=== PATIENT | female | born 1995 | race African-American/Black ===

== ENCOUNTER 2019-07-10 23:06 | Emergency (ER) | payer MEDICAID ==
[~2019-07-10] VITALS: Ht 170.2 cm; Wt 74.1 kg
[2019-07-10 23:35] VITALS: BP 104/64
== END 2019-07-11 02:09 | disposition home or self-care (01) ==
LOC: ER 23:06
DX: G44.209 Tension-type headache, unspecified, not intractable (principal); Z88.0 Allergy status to penicillin; Z88.6 Allergy status to analgesic agent
CPT/HCPCS: 99281

== ENCOUNTER 2019-10-09 15:12 | Emergency (ER) | payer MEDICAID ==
[~2019-10-09] VITALS: Ht 167.6 cm; Wt 63.0 kg
[2019-10-09 15:26] VITALS: BP 100/68
== END 2019-10-09 16:23 | disposition home or self-care (01) ==
LOC: ER 15:12
DX: J02.9 Acute pharyngitis, unspecified (principal); Z88.6 Allergy status to analgesic agent; Z88.0 Allergy status to penicillin
CPT/HCPCS: 99283

== ENCOUNTER 2019-11-23 19:06 | Emergency (ER) | payer MEDICAID ==
[~2019-11-23] VITALS: Ht 170.2 cm; Wt 69.0 kg
[2019-11-23 19:29] VITALS: BP 129/66
== END 2019-11-23 21:08 | disposition left against medical advice (07) ==
LOC: ER 19:06
DX: L02.31 Cutaneous abscess of buttock (principal); Z53.21 Procedure and treatment not carried out due to patient leaving prior to being seen by health care provider

== ENCOUNTER 2020-11-26 11:41 | Emergency (ER) | payer MEDICAID ==
[~2020-11-26] VITALS: Ht 170.2 cm; Wt 72.0 kg
[2020-11-26 11:53] VITALS: BP 103/64
[2020-11-26] MEDS ORDERED: DIPH25TA62 PO (12:47)
[2020-11-26] MEDS ORDERED: P20 PO (12:47)
[2020-11-26] MEDS ORDERED: HYDR-4622 TP (12:47)
== END 2020-11-26 12:56 | disposition home or self-care (01) ==
LOC: ER 11:41
DX: T78.40XA Allergy, unspecified, initial encounter (principal); X58.XXXA Exposure to other specified factors, initial encounter; Z88.6 Allergy status to analgesic agent; Z88.0 Allergy status to penicillin
CPT/HCPCS: 99283

== ENCOUNTER 2021-08-19 12:24 | Emergency (ER) | payer MEDICAID, OTHER ==
[~2021-08-19] VITALS: Ht 167.6 cm; Wt 71.0 kg
[~2021-08-19 12:24] MED LIST: DIPH25TA62 PO; HYDR-4622 TP; P20 PO
[2021-08-19] MEDS ORDERED: ONDANSETRON HCL 4MG/2ML INJ IV STA (12:53)
[2021-08-19] MEDS ORDERED: MORPHINE SULFATE 4 MG/ML CPJ (NOT FOR IM USE) IV STA (12:53)
[2021-08-19] MEDS ORDERED: LACTULOSE 20G/30ML UDC PO ONE (13:00)
[2021-08-19 14:15] LABS: CLARITY URINE TURBID (CLEAR); COLOR URINE RED (YELLOW); KETONES URINE NEGATIVE (NEGATIVE); LEUKOCYTE ESTERASE URINE 2+ (NEGATIVE); NITRITE URINE POSITIVE (NEGATIVE); OCCULT BLOOD URINE 2+ (NEGATIVE); PROTEIN URINE 2+ (NEGATIVE); SPECIFIC GRAVITY URINE 1.019 (1.005-1.030); UROBILINOGEN URINE 0.2 E.U./dL (0.2-1.0)
[2021-08-19] MEDS ORDERED: NITR100C PO (14:26)
[2021-08-19 14:50] LABS: BASOPHILS % 0.6 % (0.0-2.0); EOSINOPHILS % 0.6 % (0.0-5.0); HEMATOCRIT. 41.4 % (36.0-48.0); HEMOGLOBIN. 14.2 g/dL (12.0-16.0); LYMPHOCYTES % 10.3 % (20.0-50.0); MEAN CORPUSCULAR HEMOGLOBIN 30.6 pg (28.0-32.0); MEAN CORPUSCULAR VOLUME 89.4 fL (81.0-99.0); MEAN PLATELET VOLUME 9.1 fl (7.4-10.4); MONOCYTES % 5.7 % (2.0-8.0); NEUTROPHILS % 82.8 % (40.0-76.0); PLATELET 252 x1000/uL (130-400); RED BLOOD CELL COUNT 4.63 mill/uL (4.2-5.4); RED CELL DISTRIBUTION WIDTH 13.7 % (11.6-14.6)
[2021-08-19 14:59] LABS: CHLORIDE 110 mEq/L (98-107)
[2021-08-19] MEDS ORDERED: MAGNESIUM CITRATE 300ML SOLUTION PO ONE (15:00)
[2021-08-19 15:30] LABS: HCG SCREEN NEGATIVE
[2021-08-19] MEDS ORDERED: AMPICILLIN SOD/SULBACTAM NA 1.5 G in SODIUM CHLORIDE 0.9% 50 ML IV SCH (16:30)
[2021-08-19 17:00] VITALS: BP 102/48
[2021-08-19] MEDS ORDERED: HYDR-4001 MT (17:37)
[2021-08-19] MEDS ORDERED: LEVO750T46 MT (17:37)
[2021-08-19] MEDS ORDERED: IBUP-2028 MT (17:37)
[2021-08-19] MEDS ORDERED: METR500T PO (17:37)
== END 2021-08-19 18:10 | disposition home or self-care (01) ==
LOC: ER 12:39
DX: N39.0 Urinary tract infection, site not specified (principal); I71.4 Abdominal aortic aneurysm, without rupture; Z88.6 Allergy status to analgesic agent; Z88.0 Allergy status to penicillin
CPT/HCPCS: 36415; 74176; 76705; 76830; 76856; 80053; 81003; 83690; 84703; 85025; 96374; 96375; 99284; J0295; J2270; J2405; Z7610

== ENCOUNTER 2023-10-07 03:43 | Emergency (ER) | payer MEDICAID, OTHER ==
[~2023-10-07] VITALS: Ht 170.2 cm; Wt 71.0 kg
[~2023-10-07 03:43] MED LIST changes: +HYDR-4001 MT; +IBUP-2028 MT; +LEVO750T68 MT; +METR500T PO; +NITR100C PO
[2023-10-07] MEDS: ACETAMINOPHEN 325MG TABLET PO ONE (03:52)
== END 2023-10-07 05:00 | disposition left against medical advice (07) ==
LOC: ER 03:43
DX: K08.89 Other specified disorders of teeth and supporting structures (principal)
CPT/HCPCS: 99281